=== PATIENT | female | born 1985 | race Caucasian/White ===

== ENCOUNTER 2019-11-24 15:14 | Emergency (ER) | payer OTHER ==
[~2019-11-24] VITALS: Ht 162.6 cm; Wt 89.4 kg
[2019-11-24 15:16] VITALS: Ht 162.6 cm; Wt 89.4 kg
[2019-11-24 16:36] LABS: BASOPHIL % 0.2 % (0-2); PLATELET COUNT 274 x10^3mcL (130-400); RED CELL DISTRIBUTION WIDTH 14.4 % (11.5-14.5)
[2019-11-24 17:03] LABS: CALCIUM 8.5 mg/dL (8.5-10.1); CARBON DIOXIDE 28.3 mmol/L (21-32); CHLORIDE SERUM 103 mmol/L (98-107); CREATININE SERUM 0.8 mg/dL (0.6-1.0); GFR1 > 60 mL/min; GLUCOSE SERUM 103 mg/dL (74-106); POTASSIUM SERUM 3.4 mmol/L (3.5-5.1); SODIUM SERUM 141 mmol/L (136-145)
[2019-11-24 17:09] LABS: ALBUMIN 3.6 g/dL (3.4-5.0); ALKALINE PHOSPHATASE 80 U/L (46-116); ALT/SGPT 32 U/L (14-59); AST/SGOT 22 U/L (15-37); LIPASE 98 IU/L (73-393); TOTAL PROTEIN, SERUM 7.8 g/dL (6.4-8.2)
[2019-11-24 19:54] VITALS: BP 119/84
== END 2019-11-24 19:55 | disposition home or self-care (01) ==
LOC: ED 15:14
PROVIDERS: Specialist
DX: J06.9 Acute upper respiratory infection, unspecified (principal); N83.201 Unspecified ovarian cyst, right side; R11.10 Vomiting, unspecified; R19.7 Diarrhea, unspecified; J45.909 Unspecified asthma, uncomplicated; Z90.49 Acquired absence of other specified parts of digestive tract
CPT/HCPCS: 36415; J1885; Q0162